=== PATIENT | female | born 1955 | race Caucasian/White ===

== ENCOUNTER 2020-09-11 02:20 | Day surgery (SDC) | payer BC, SELFPAY ==
[2020-08-27 09:46] VITALS: BMI 21.7
[2020-09-11 09:24] VITALS: BP 150/76; PULSE 59; RESP 16; TEMP 36.8; O2SAT 99
--- NOTE | 2020-09-11 09:47 | PM.HPGS ---
History of Present Illness History of Present Illness Consent: Risks, benefits, and alternatives have been discussed and questions answered. Patient agrees to proceed with procedure. Chief complaint: weight loss, change in bowel habits Narrative: Thuy Chowdary is a 64 year old female with recent weight loss. She has had no vomiting nausea or abdominal pain. She has however had a significant change in her bowel habits. She was constipated for well and then after taking laxative she developed diarrhea. Going on a fiber supplement has seems to help with that. Review of Systems Review of Systems: All systems reviewed & are unremarkable except as noted in HPI and below PMFSH Past Medical History Medical History (Updated 09/11/20 @ 09:48 by Dino Sierra MD) Heart murmur Hyperlipidemia Hypertension Type 2 diabetes mellitus without complications Family History Family History Mother Diabetes mellitus Family history of cardiovascular disease Sibling Diabetes mellitus Family history of cardiovascular disease Father Asthma Family history of cardiovascular disease Social History Social History Smoking status: Never smoker Second hand tobacco smoke exposure: No Alcohol intake: never Substance use: never Substance use type: does not use Living arrangements: with family Gender identity (if verbalized by the patient): Female Spiritual care concerns: No Agree to blood products: Yes Meds Home Medications and Allergies Home Medications Medication Instructions Recorded Confirmed Type aspirin 81 mg tablet,delayed 81 mg PO DAILY 07/15/19 09/11/20 History release candesartan 32 1 tablet PO DAILY 07/15/19 09/11/20 History mg-hydrochlorothiazide 12.5 mg tablet simvastatin 20 mg tablet 20 mg PO DAILY 07/15/19 09/11/20 History metformin 1,000 mg tablet See Rx Instructions .ROUTE 07/27/20 09/11/20 Rx .COMPLEX #180 tablet Allergies Allergy/AdvReac Type Severity Reaction Status Date / Time dextrose AdvReac Mild Unknown Verified 09/11/20 09:22 theophylline AdvReac Mild Vomiting Verified 09/11/20 09:22 iodine AdvReac Unknown Diarrhea Verified 09/11/20 09:22 Xanthines AdvReac Unknown Vomiting Verified 09/11/20 09:22 Vital Signs Vital Signs - 24 hr 09/11/20 09:24 Temperature 36.8 C Pulse Rate 59 L Respiratory Rate 16 Blood Pressure 150/76 H Pulse Oximetry 99 Exam Resp: Auscultation: clear to auscultation bilaterally Cardio: Rate: regular rate Rhythm: regular rhythm GI: GI Palp: Yes Soft to palpation and No Tenderness to palpation present (GI) Assessment and Plan Assessment and plan (1) Weight loss: Code(s): R63.4 - Abnormal weight loss Status: Acute Assessment and Plan: EGD with possible biopsy or dilatation or cautery. (2) Colon cancer screening: Code(s): Z12.11 - Encounter for screening for malignant neoplasm of colon Status: Acute Assessment and Plan: Colonoscopy with possible biopsy or polypectomy or cautery or injection of substances.
[2020-09-11 09:50] LABS: Glucose Point of Care 136 mg/dl (65-105)
--- NOTE | 2020-09-11 09:55 | WPDANESEPPF ---
Anes - Initial Pre Proc Eval Procedure: Operation Date: 09/11/20 10:30 Proposed Procedures p Esophagogastroduodenoscopy & Colonoscopy - Dino Sierra MD Date/Time: 09/11/20 09:55 Surgeon: Dino Sierra MD Pre Op Diagnosis: weight loss, change in bowel habits Patient Data Age: 64 Gender: F Height: 1.83 m Weight: 68.9 kg Last Vital Signs Temp 98.2 F 09/11/20 09:24 Pulse 59 L 09/11/20 09:24 Resp 16 09/11/20 09:24 BP 150/76 H 09/11/20 09:24 Pulse Ox 99 09/11/20 09:24 Allergies Allergy/AdvReac Type Severity Reaction Status Date / Time dextrose AdvReac Mild Unknown Verified 09/11/20 09:22 theophylline AdvReac Mild Vomiting Verified 09/11/20 09:22 iodine AdvReac Unknown Diarrhea Verified 09/11/20 09:22 Xanthines AdvReac Unknown Vomiting Verified 09/11/20 09:22 Home Medications Medication Instructions Recorded Confirmed Type aspirin 81 mg tablet,delayed 81 mg PO DAILY 07/15/19 09/11/20 History release candesartan 32 1 tablet PO DAILY 07/15/19 09/11/20 History mg-hydrochlorothiazide 12.5 mg tablet simvastatin 20 mg tablet 20 mg PO DAILY 07/15/19 09/11/20 History metformin 1,000 mg tablet See Rx Instructions .ROUTE 07/27/20 09/11/20 Rx .COMPLEX #180 tablet Laboratory Tests 09/11/20 09:46 POC Capillary Glucose 136 mg/dl H mg/dl (65-105) Patient hx anesthesia problems: none Family hx anesthesia problems: none PMFSH Past Medical History Medical History (Updated 09/11/20 @ 09:48 by Dino Sierra MD) Heart murmur Hyperlipidemia Hypertension Type 2 diabetes mellitus without complications Family History Family History Mother Diabetes mellitus Family history of cardiovascular disease Sibling Diabetes mellitus Family history of cardiovascular disease Father Asthma Family history of cardiovascular disease Social History Social History Smoking status: Never smoker Second hand tobacco smoke exposure: No Alcohol intake: never Substance use: never Substance use type: does not use Living arrangements: with family Gender identity (if verbalized by the patient): Female Spiritual care concerns: No Agree to blood products: Yes Anes - Eval Final PreProcedure Day of Procedure 09/11/20 09:55 Patient weight: normal Heart: regular rate and rhythm Lungs: clear to auscultation Airway: Mallampati scale class II Neurological: alert and oriented Last oral intake: >/= 8 hours ASA classification: II Emergent: no Anesthetic plan: proceed Anesthesia type and monitoring: general GIVS and standard monitoring Informed Consent: The patient's anesthetic plan and its attendant risks and benefits were discussed with the patient/family/POA. Questions were solicited and answers provided to the satisfaction of the patient/family/POA.
[2020-09-11] MEDS: LACTATED RINGERS 1,000 ML 150 ML IV CONT (10:02)
[2020-09-11] MEDS: BENZOCAINE (*SP) 60 ML SPRAY CAN (HURRICAINE) 1 SPRAY MUCOUS MEM (10:10)
[2020-09-11 10:41] VITALS: BP 111/72; PULSE 78; RESP 17; O2SAT 100
[2020-09-11 10:49] VITALS: BP 108/74; PULSE 75; RESP 16; O2SAT 100
[2020-09-11 10:59] VITALS: BP 120/73; PULSE 70; RESP 16; O2SAT 100
== END 2020-09-11 11:23 | disposition home or self-care (01) ==
PROVIDERS: PCP Family Medicine; Visit Provider Internal Medicine Gastroenterology
PROC: 0DJ08ZZ Inspection of Upper Intestinal Tract, Via Natural or Artificial Opening Endoscopic (ICD-10-PCS; CPT 43235; principal; 2020-09-11 10:30)
DX: Z12.11 Encounter for screening for malignant neoplasm of colon (principal); D12.4 Benign neoplasm of descending colon; K51.40 Inflammatory polyps of colon without complications; K64.4 Residual hemorrhoidal skin tags; K57.30 Diverticulosis of large intestine without perforation or abscess without bleeding; R63.4 Abnormal weight loss; K21.9 Gastro-esophageal reflux disease without esophagitis; I10 Essential (primary) hypertension; E78.5 Hyperlipidemia, unspecified; E11.9 Type 2 diabetes mellitus without complications; Z79.84 Long term (current) use of oral hypoglycemic drugs; Z79.82 Long term (current) use of aspirin
CPT/HCPCS: 45385; 43239; 82948; 87081; 88305; J2704; J7120

== ENCOUNTER 2022-11-17 13:15 | Outpatient (RCR) | payer MEDICARE, SELFPAY ==
--- NOTE | 2022-10-18 14:50 | PTOPEVAL1 ---
Assessment and note entered by Leonel Carr Evaluation Information Assessment Status Evaluation Diagnosis left shoulder pain Onset 10/03/22 Subjective Information Pt. reports she developed pain around the 03 of October. She was moving a concrete block in her yard and that is when she noticed her pain. She reports that she also has to lift her husbands wc frequently, which has also contributed to her left shoulder pain. She reports pain is improving since seeing the doctor, and she recieved a shot from the doctor. She reports that pain is mild currently and describes pain in the left shoulder and lateral brachial region. She reports pain is most notable with lifting any light or heavy objects. She reports that pain does not bother her sleep at night. She states that it did prior to her injection. Pain was constant, however no is only notable with activity. She reports that her goal for therapy is to reduce her pain in the left shoulder with lifting. Pt. reports she is right hand dominant. Reported Pain Level Pain Score 0: Self Report Assessment PT Clinical Summary Pt. is a 67 year old female who enters the clinic with left shoulder pain. Pt. objective findings are consistent with impingement syndrome. Continued skilled PT is indicated in order to improve left u.e. strength, left shoulder flexion ROM, reduce pain and improve postural awareness for improved comfort with IADL's. Plan of Care Interventions Electrical Stimulation,Hot Pack/Cold Pack,Manual Therapy,Neuro Re-education,Patient/Caregiver Educati,Therapeutic Activities,Therapeutic Exercise PT Services Indicated Yes Treatment Frequency and 2x/week x 8 visits Duration These treatments will address the objective and functional deficits as defined above. The patient will be advanced safely and appropriately in order for the patient to progress towards his/her prior level of function. Additional exercises will be introduced and as well as a comprehensive home exercise program upon discharge, if needed, ?to ensure carryover of functional gains achieved in the clinic. This treatment plan has been reviewed and agreement upon by the patient.
--- NOTE | 2022-10-18 14:51 | OPREHPOC ---
Outpatient Therapy Plan of Care This is a Multidisciplinary Plan of Care that may contain components documented by all disciplines (PT, OT, and ST.) PT Problem 1 PT Problem #1 Knowledge Deficit PT Goal 1 Goal Pt. will be independent with a HEP addressing strength and postural awareness. Target Visit 2 PT Problem 2 PT Problem #2 Pain PT Goal 1 Goal Pt. will report pain reduction to 1/10 at worst with all overhead lifting activities. Target Visit 8 PT Problem 3 PT Problem #3 Impaired Range of Motion PT Goal 1 Goal Pt. will achieve 170 degrees active left shoulder flexion ROM to improve ability to complete overhead activities. Target Visit 8 PT Problem 4 PT Problem #4 Impaired Strength PT Goal 1 Goal Pt. will present with 4+/5 or great proximal left shoulder strength Target Visit 6 PT Goal 2 Goal Pt. will be able to lift object weighing 10# or greater overhead with left u.e. for 5-10 reps Target Visit 8
--- NOTE | 2022-11-17 14:00 | OPREHPOC ---
Outpatient Therapy Plan of Care This is a Multidisciplinary Plan of Care that may contain components documented by all disciplines (PT, OT, and ST.) PT Problem 1 PT Problem #1 Knowledge Deficit PT Goal 1 Goal Pt. will be independent with a HEP addressing strength and postural awareness. Target Visit 2 Progress Met PT Problem 2 PT Problem #2 Pain PT Goal 1 Goal Pt. will report pain reduction to 1/10 at worst with all overhead lifting activities. Target Visit 8 Progress Met PT Problem 3 PT Problem #3 Impaired Range of Motion PT Goal 1 Goal Pt. will achieve 170 degrees active left shoulder flexion ROM to improve ability to complete overhead activities. Target Visit 8 Progress Met PT Problem 4 PT Problem #4 Impaired Strength PT Goal 1 Goal Pt. will present with 4+/5 or great proximal left shoulder strength Target Visit 6 Progress Met PT Goal 2 Goal Pt. will be able to lift object weighing 10# or greater overhead with left u.e. for 5-10 reps Target Visit 8 Progress Met
--- NOTE | 2022-11-17 14:01 | PTOPDC ---
Assessment and note entered by Wero York, PT Discharge Information Assessment Status Discharge Diagnosis left shoulder pain Onset 10/03/22 Subjective Information Reports that she is doing fairly well today. She was waxing her car this weekend and was fairly sore from that. Overall feels progress is made. Reported Pain Level Pain Score 0: Self Report Assessment PT Clinical Summary Patient met all goals for therapy and is suitable for discharge to [facility] at this time. Plan of Care PT Services Indicated No
== END 2022-11-17 14:13 | disposition home or self-care (01) ==
LOC: ANHHIPT 13:15
PROVIDERS: PCP Physician Assistant Medical; Visit Provider Physician Assistant Medical
DX: M25.512 Pain in left shoulder (principal)
CPT/HCPCS: 97110; 97112; 97140; 97161

== ENCOUNTER 2023-08-15 06:54 | Day surgery (SDC) | payer MEDICARE, SELFPAY ==
[2023-07-28 09:54] VITALS: BMI 21.2
[2023-08-03 14:37] VITALS: BMI 21.0
--- NOTE | 2023-08-14 13:59 | PM.HPGS ---
History of Present Illness History of Present Illness Consent: Risks, benefits, and alternatives have been discussed and questions answered. Patient agrees to proceed with procedure. 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 Review of Systems Review of Systems: All systems reviewed & are unremarkable except as noted in HPI and below PMFSH Past Medical History Medical History 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, Dr Sierra Heart murmur Hyperlipidemia Hypertension Dr Wallace Type 2 diabetes mellitus without complications Surgical History Surgical History Status post hysteroscopic ablation of endometrium Family History Family History Mother Diabetes mellitus Family history of cardiovascular disease Sibling Diabetes mellitus Family history of cardiovascular disease Father Asthma Family history of cardiovascular disease Social History Social History Smoking status: Never smoker Second hand tobacco smoke exposure: No Alcohol intake: never Substance use: never Substance use type: does not use Lack of Transportation: YES Lack of Food: Never True Current Housing: I Have Housing Concerned About Future Housing: No Difficulty Paying Gas/Electric Bills: No Difficulty Paying for Meds: No Currently Unemployed: No Education: High School Diploma/GED Difficulty w/ Childcare or Family Care: No Living arrangements: with family Occupation/Education: retired Gender identity (if verbalized by the patient): Female Sexual Orientation (if Verbalized by the Patient): Straight or Heterosexual Spiritual care concerns: No Agree to blood products: Yes Meds Home Medications and Allergies Home Medications Medication Instructions Recorded Confirmed Type aspirin 81 mg tablet,delayed 81 mg PO DAILY 07/15/19 08/15/23 History release simvastatin 20 mg tablet 20 mg PO DAILY 07/15/19 08/15/23 History omeprazole 20 mg capsule,delayed 20 mg PO DAILY #30 caps 11/26/20 08/15/23 Rx release losartan 100 1 tablet PO DAILY #90 tabs 05/17/22 08/15/23 Rx mg-hydrochlorothiazide 12.5 mg tablet Lactobacillus rhamnosus-Bifidobac. 1 cap PO DAILY 11/16/22 08/15/23 History animalis 3 billion cell capsule ([employer]) metformin 1,000 mg tablet 1,000 mg PO BID 08/03/23 08/15/23 History Allergies Allergy/AdvReac Type Severity Reaction Status Date / Time citalopram AdvReac Severe Diarrhea Verified 08/15/23 07:47 lorazepam AdvReac Intermediate Diarrhea Verified 08/15/23 07:47 dextrose AdvReac Mild Unknown Verified 08/15/23 07:47 theophylline AdvReac Mild Vomiting Verified 08/15/23 07:47 iodine AdvReac Unknown Diarrhea Verified 08/15/23 07:47 Xanthines AdvReac Unknown Vomiting Verified 08/15/23 07:47 Exam Const: General: alert Orientation/consciousness: patient oriented x3 Resp: Auscultation: clear to auscultation bilaterally Cardio: Rhythm: regular rhythm GI: GI Palp: Yes Soft to palpation and No Tenderness to palpation present (GI) Neuro: General: patient oriented x3 Assessment and Plan Assessment and plan (1) Marquis's esophagus determined by endoscopy: Code(s): K22.70 - Marquis's esophagus without dysplasia Status: Acute Assessment and Plan: EGD with possible biopsy or dilatation or cautery.
[2023-08-15 07:48] VITALS: BP 177/77; PULSE 64; RESP 16; TEMP 37.3; O2SAT 98
[2023-08-15] MEDS: LACTATED RINGERS 1,000 ML 150 ML IV CONT (07:50)
[2023-08-15 08:01] LABS: Glucose Point of Care 118 mg/dl (65-105)
--- NOTE | 2023-08-15 08:30 | WPDANESEPPF ---
Anes - Initial Pre Proc Eval Procedure: Operation Date: 08/15/23 09:00 Proposed Procedures p Esophagogastroduodenoscopy - Dino Sierra MD Date/Time: 08/15/23 08:30 Surgeon: Dino Sierra MD Pre Op Diagnosis: Marquis's Patient Data Age: 67 Gender: F Height: 1.83 m Weight: 70.1 kg Last Vital Signs Temp 37.3 C 08/15/23 07:48 Pulse 64 08/15/23 07:48 Resp 16 08/15/23 07:48 BP 177/77 H 08/15/23 07:48 Pulse Ox 98 08/15/23 07:48 O2 Del Method Room Air 08/15/23 07:48 Allergies Allergy/AdvReac Type Severity Reaction Status Date / Time citalopram AdvReac Severe Diarrhea Verified 08/15/23 07:47 lorazepam AdvReac Intermediate Diarrhea Verified 08/15/23 07:47 dextrose AdvReac Mild Unknown Verified 08/15/23 07:47 theophylline AdvReac Mild Vomiting Verified 08/15/23 07:47 iodine AdvReac Unknown Diarrhea Verified 08/15/23 07:47 Xanthines AdvReac Unknown Vomiting Verified 08/15/23 07:47 Home Medications Medication Instructions Recorded Confirmed Type aspirin 81 mg tablet,delayed 81 mg PO DAILY 07/15/19 08/15/23 History release simvastatin 20 mg tablet 20 mg PO DAILY 07/15/19 08/15/23 History omeprazole 20 mg capsule,delayed 20 mg PO DAILY #30 caps 11/26/20 08/15/23 Rx release losartan 100 1 tablet PO DAILY #90 tabs 05/17/22 08/15/23 Rx mg-hydrochlorothiazide 12.5 mg tablet Lactobacillus rhamnosus-Bifidobac. 1 cap PO DAILY 11/16/22 08/15/23 History animalis 3 billion cell capsule ([employer]) metformin 1,000 mg tablet 1,000 mg PO BID 08/03/23 08/15/23 History Laboratory Tests 08/15/23 07:54 POC Capillary Glucose 118 H mg/dl (65-105) Patient hx anesthesia problems: none Family hx anesthesia problems: none Results Review: All pre-operative results and documents have been reviewed as part of the pre-operative evaluation. [facility] Past Medical History Medical History 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, Dr Sierra Heart murmur Hyperlipidemia Hypertension Dr Wallace Type 2 diabetes mellitus without complications Surgical History Surgical History Status post hysteroscopic ablation of endometrium Family History Family History Mother Diabetes mellitus Family history of cardiovascular disease Sibling Diabetes mellitus Family history of cardiovascular disease Father Asthma Family history of cardiovascular disease Social History Social History Smoking status: Never smoker Second hand tobacco smoke exposure: No Alcohol intake: never Substance use: never Substance use type: does not use Lack of Transportation: YES Lack of Food: Never True Current Housing: I Have Housing Concerned About Future Housing: No Difficulty Paying Gas/Electric Bills: No Difficulty Paying for Meds: No Currently Unemployed: No Education: High School Diploma/GED Difficulty w/ Childcare or Family Care: No Living arrangements: with family Occupation/Education: retired Gender identity (if verbalized by the patient): Female Sexual Orientation (if Verbalized by the Patient): Straight or Heterosexual Spiritual care concerns: No Agree to blood products: Yes Anes - Eval Final PreProcedure Day of Procedure 08/15/23 08:30 Patient weight: normal Heart: regular rate and rhythm Lungs: clear to auscultation Airway: Mallampati scale class II Neurological: alert and oriented Last oral intake: >/= 8 hours ASA classification: III Emergent: no Anesthetic plan: proceed Anesthesia type and monitoring: general GIVS and standard monitoring Results Review: All pre-operative results and documents have been reviewed as part of the pre-operative evaluation. Informed Consent: The patient's an
[2023-08-15 09:01] VITALS: BP 107/87; PULSE 71; RESP 14; O2SAT 98
[2023-08-15 09:11] VITALS: BP 119/74; PULSE 58; RESP 16; O2SAT 97
[2023-08-15 09:21] VITALS: BP 132/91; PULSE 57; RESP 16; O2SAT 97
--- NOTE | 2023-08-15 09:35 | WPDANESPN ---
Anes - Prog Note Post-Op Date/Time: 08/15/23 09:35 Cardiovascular status: normal Respiratory status: normal Airway patency: baseline Mental status: baseline Vital Signs: Last Vital Signs Temp 37.3 C 08/15/23 07:48 Pulse 64 08/15/23 07:48 Resp 16 08/15/23 07:48 BP 177/77 H 08/15/23 07:48 Pulse Ox 98 08/15/23 07:48 O2 Del Method Room Air 08/15/23 07:48 Pain Score (VAS): 0/10 I/O: Intake & Output 08/14/23 08/15/23 08/15/23 23:59 07:59 15:59 Intake Total 200 Balance 200 08/15/23 07:54 POC Capillary Glucose 118 H Patient Feedback: Patient satisfied with anesthetic care.
== END 2023-08-15 09:40 | disposition home or self-care (01) ==
PROVIDERS: PCP Family Medicine; Visit Provider Internal Medicine Gastroenterology
PROC: 0DJ08ZZ Inspection of Upper Intestinal Tract, Via Natural or Artificial Opening Endoscopic (ICD-10-PCS; CPT 43235; principal; 2023-08-15 09:00)
DX: K22.70 Barrett's esophagus without dysplasia (principal)
CPT/HCPCS: 43239

== ENCOUNTER 2023-08-15 07:32 | Outpatient (NON) | payer MEDICARE, SELFPAY | END 2023-08-15 07:33 | disposition home or self-care (01) | PROVIDERS: PCP Family Medicine; Visit Provider Internal Medicine Gastroenterology | DX: K21.00 Gastro-esophageal reflux disease with esophagitis, without bleeding (principal); K22.70 Barrett's esophagus without dysplasia | CPT/HCPCS: 88305 ==

== ENCOUNTER 2023-10-09 10:42 | Emergency (ER) | payer MEDICARE, SELFPAY ==
[2023-10-09 11:02] VITALS: BP 154/79; PULSE 60; RESP 18; TEMP 36.5; O2SAT 98
--- NOTE | 2023-10-09 11:09 | ED.FEMALEGU ---
HPI - Female Genitourinary General Chief complaint: Urogenital-Female Stated complaint: blood in urine Time Seen by Provider: 10/09/23 11:09 Source: patient Mode of arrival: ambulatory Limitations: no limitations History of Present Illness HPI Narrative: 68-year-old female presents with complaint of blood in urine, dysuria since yesterday. No abdominal or back pain. Afebrile. History of kidney stones and No similar symptoms. Not concerned for kidney stones at this time. Denies nausea vomiting. All systems reviewed and negative except as noted above. Related Data Home Medications Medication Instructions Recorded Confirmed aspirin 81 mg tablet,delayed 81 mg PO DAILY 07/15/19 10/09/23 release simvastatin 20 mg tablet 20 mg PO DAILY 07/15/19 10/09/23 Lactobacillus rhamnosus-Bifidobac. 1 cap PO DAILY 11/16/22 10/09/23 animalis 3 billion cell capsule ([employer] metformin 1,000 mg tablet 1,000 mg PO BID 08/03/23 10/09/23 Allergies Allergy/AdvReac Type Severity Reaction Status Date / Time citalopram AdvReac Severe Diarrhea Verified 10/09/23 11:01 lorazepam AdvReac Intermediate Diarrhea Verified 10/09/23 11:01 dextrose AdvReac Mild Unknown Verified 10/09/23 11:01 theophylline AdvReac Mild Vomiting Verified 10/09/23 11:01 iodine AdvReac Unknown Diarrhea Verified 10/09/23 11:01 Xanthines AdvReac Unknown Vomiting Verified 10/09/23 11:01 Review of Systems Review of Systems: CONSTITUTIONAL: Denies fever, chills, or sweats. EYES: Denies visual changes, redness, or discharge. ENT: Denies rhinorrhea, congestion, sore throat, or otalgia. CARDIOVASCULAR: Denies chest pain, palpitations, or edema. RESPIRATORY: Denies cough or dyspnea. GASTROINTESTINAL: Denies abdominal pain, nausea, vomiting, or diarrhea. GENITOURINARY: Reports dysuria and hematuria. SKIN: Denies rash or itching. MUSCULOSKELETAL: Denies back pain, joint pain, or myalgia. NEUROLOGIC: Denies headache, numbness, or weakness. PSYCHIATRIC: Denies anxiety or depression. All other systems reviewed are negative, except as documented in HPI. [facility] Past Medical History Medical History (Updated 10/09/23 @ 11:19 by Malia Doll NP) 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, Dr Sierra Heart murmur Hyperlipidemia Hypertension Dr Wallace Type 2 diabetes mellitus without complications Surgical History Surgical History (Updated 08/15/23 @ 10:47 by Arielle Lockhart [facility]) H/O esophagogastroduodenoscopy Status post hysteroscopic ablation of endometrium Family History Family History Mother Diabetes mellitus Family history of cardiovascular disease Sibling Diabetes mellitus Family history of cardiovascular disease Father Asthma Family history of cardiovascular disease Social History Social History Smoking status: Never smoker Second hand tobacco smoke exposure: No Alcohol intake: never Substance use: never Substance use type: does not use Lack of Transportation: YES Lack of Food: Never True Current Housing: I Have Housing Concerned About Future Housing: No Difficulty Paying Gas/Electric Bills: No Difficulty Paying for Meds: No Currently Unemployed: No Education: High School Diploma/GED Difficulty w/ Childcare or Family Care: No Living arrangements: with family Occupation/Education: retired Gender identity (if verbalized by the patient): Female Sexual Orientation (if Verbalized by the Patient): Straight or Heterosexual Spiritual care concerns: No Agree to blood products: Yes Comments At time of signature, agree with nursing past medical, surgical, social and family history. There is no relevant family history pertinent to the presenting complaint. Exam Narrative: GENERAL: This is a well-nourished, well-developed patient, in no apparent distress. H
[2023-10-09 11:11] LABS: EDUAAPPEAR Cloudy; EDUABILI Negative; EDUABLOOD 3+; EDUACOLOR1 Yellow; EDUAGLUCOSE Negative; EDUAKETONE Negative; EDUALEUKO 1+; EDUANITRATE Negative; EDUAPROTEIN Negative; EDUAUROBILI 0.2
== END 2023-10-09 11:22 | disposition home or self-care (01) ==
PROVIDERS: Emergency Provider Nurse Practitioner Family; PCP Internal Medicine
DX: N39.0 Urinary tract infection, site not specified (principal); K22.70 Barrett's esophagus without dysplasia; R01.1 Cardiac murmur, unspecified; E78.5 Hyperlipidemia, unspecified; I10 Essential (primary) hypertension; E11.9 Type 2 diabetes mellitus without complications; Z79.82 Long term (current) use of aspirin
CPT/HCPCS: 81003; 87086; 99213; G0463

== ENCOUNTER 2024-05-03 10:52 | Emergency (ER) | payer MEDICARE, SELFPAY ==
--- NOTE | 2024-05-03 10:56 | ED_ITS ---
HPI - URI/Sore Throat General Chief Complaint: Upper Respiratory Infection Stated Complaint: cough Time Seen by Provider: 05/03/24 11:00 Source: patient, RN notes reviewed and old records reviewed Mode of arrival: ambulatory Limitations: no limitations History of Present Illness HPI Narrative: 68-year-old female presents to the [facility] with complaints of a scratchy throat, cough, runny nose and drainage for the last 10-12 days. States that her blood sugars normally run 110-120. Patient states that her sugars have been in the 130s. Patient denies any chest pain, shortness of breath. Denies fevers. No nausea vomiting diarrhea. Onset (ago): day(s) (11-24) Related Data Home Medications ?Medication ?Instructions ?Recorded ?Confirmed ?Last Taken ?Type aspirin 81 mg tablet,delayed 81 mg PO DAILY 07/15/19 12/22/23 09/09/20 History release simvastatin 20 mg tablet 20 mg PO DAILY 07/15/19 12/22/23 09/09/20 History Lactobacillus rhamnosus-Bifidobac. 1 cap PO DAILY 11/16/22 12/22/23 Unknown History animalis 3 billion cell capsule (AorTx) Allergies Allergy/AdvReac Type Severity Reaction Status Date / Time citalopram AdvReac Intermediate Diarrhea Verified 05/03/24 10:55 dextrose AdvReac Intermediate Gastrointestinal Verified 05/03/24 10:55 Upset iodine AdvReac Intermediate Diarrhea Verified 05/03/24 10:55 lorazepam AdvReac Intermediate Diarrhea Verified 05/03/24 10:55 theophylline AdvReac Intermediate Vomiting Verified 05/03/24 10:55 Xanthines AdvReac Intermediate Vomiting Verified 05/03/24 10:55 Review of Systems Review of Systems: All systems reviewed & are unremarkable except as noted in HPI and below Constitutional: Constitutional: Reports no additional constitutional complaints ENT: Reports as per HPI Cardiovascular: Cardiovascular: Reports no additional cardiovascular complaints, Denies chest pain and Denies dyspnea Respiratory: Respiratory: Reports as per HPI, Denies chest congestion, Reports cough and Denies dyspnea Musculoskeletal: Musculoskeletal: Reports no additional musculoskeletal complaints Integumentary/Breasts: Skin/Breast: Reports system reviewed and no additional complaints, except as docu PMFSH Past Medical History Medical History 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, Dr Sierra Heart murmur Hyperlipidemia Hypertension Dr Wallace Type 2 diabetes mellitus without complications Surgical History Surgical History H/O esophagogastroduodenoscopy Status post hysteroscopic ablation of endometrium Family History Family History Mother Diabetes mellitus Family history of cardiovascular disease Sibling Diabetes mellitus Family history of cardiovascular disease Father Asthma Family history of cardiovascular disease Social History Social History Smoking status: Never smoker Second hand tobacco smoke exposure: No Alcohol intake: never Substance use: never Substance use type: does not use Lack of Transportation: YES Lack of Food: Never True Current Housing: I Have Housing Concerned About Future Housing: No Difficulty Paying Gas/Electric Bills: No Difficulty Paying for Meds: No Currently Unemployed: No Education: High School Diploma/GED Difficulty w/ Childcare or Family Care: No Living arrangements: with family Occupation/Education: retired Gender identity (if verbalized by the patient): Female Sexual Orientation (if Verbalized by the Patient): Straight or Heterosexual Spiritual care concerns: No Agree to blood products: Yes Comments At the time of my signature, I reviewed and agree with the nursing past medical, surgical, social, and family history. There is no relevant family history pertinent to the patient complaint. Exam Const: General: cooperative, healthy appearing, comfortable, no acute distress, well developed, alert and well nourished Nutritional Appearance: well nourished Orientation/consciousness: patient oriented x3 Limitations: no limitations HENMT: Head: normal to inspection Ears: hearing grossly normal bilaterally, external ears normal, TM's normal bilaterally, EAC's normal, mastoids normal and no periauricular adenopathy Face/Nose/Sinus: Normal external nose present, Nasal discharge present clear bilateral and normal facial exam Mouth: Yes Normal oral and palatal mucosa present, Yes lip normal, Yes tongue normal and Yes moist mucous membranes Throat: uvula midline, postnasal drainage and no uvular edema Eyes: General: appearance normal, both eyes and all related structures Alignment and Position: alignment normal Neck: Neck: normal visual inspection, full ROM, no lymphadenopathy and no meningeal signs Chest: Chest palpation & inspection: normal inspection of the chest Resp: Effort & Inspection: normal respiratory effort and able to speak in complete sentences Auscultation: clear to auscultation bilaterally, no crackles, no rales, no rhonchi and no wheezes Cardio: Rate: regular rate Skin: General skin exam: normal color and no rashes or lesions noted Neuro: General: patient oriented x3, gait normal, moves all extremities and no meningeal signs Cognition (Neuro): normal cognition Speech: normal speech Gait exam (Neuro): Normal gait present Extrem: General: normal to inspection, full ROM, capillary refill normal and normal gait Psych: Appearance: grossly normal and well kempt Mental Status: mental status grossly normal Speech and movement: Normal speech and movement present and Clear speech present Affect: normal affect Attitude: cooperative Course Course Level of Care: Express Care Visit Vital Signs Vital signs: Vital Signs Temperature 96.9 F L 05/03/24 10:59 Pulse Rate 81 05/03/24 10:59 Respiratory Rate 17 05/03/24 10:59 Blood Pressure 129/80 05/03/24 10:59 Pulse Oximetry 98 05/03/24 10:59 Oxygen Delivery Room Air 05/03/24 10:59 Temperature 96.9 F L 05/03/24 10:59 Pulse Rate 81 05/03/24 10:59 Respiratory Rate 17 05/03/24 10:59 Blood Pressure 129/80 05/03/24 10:59 Pulse Oximetry 98 05/03/24 10:59 Oxygen Delivery Room Air 05/03/24 10:59 Reviewed MDM - URI/Sore Throat MDM Narrative Medical decision making narrative: Patient sitting comfortably in exam room. Nontoxic, stable. Patient in no acute distress. Patient presents for 10 to 12 day history cough. Postnasal drainage is noted. No acute findings noted on exam except for postnasal drainage. Due to patient's history days of symptoms, will cover with antibiotic. Discussed with patient that this could also be allergies, discussed [id number] treatments as well, patient verbalized understanding. Patient appropriate for outpatient treatment with close follow-up Discharge instructions reviewed with patient, as well as provided in writing per nursing staff. The instructions also include specific and strict return/GO TO THE ER as well as f/u information. All questions have been answered, and the patient deny any further questions with discharge and discharge plan. Some parts of this dictation were generated by voice recognition software and may contain typographical and/or grammatical inaccuracies. Differential Diagnosis Differential diagnosis: Likely upper respiratory infection, otitis media, sinusitis, viral infection, bronchitis, influenza and pharyngitis Critical Care Time Critical Care Time Critical Care Time: No Discharge Plan Discharge Clinical Impression: PND (post-nasal drip) Cough Qualifiers: Cough type: acute Qualified Code(s): R05.1 - Acute cough Patient Disposition: Home, Self-Care Condition: Stable Instructions: Antibiotic Form, Acute Cough (ED), Postnasal Drip (DC) Additional Instructions: It is very important to treat your symptoms. Drink plenty of water, Gatorade, Pedialyte, ice pops or Jell-O. -Alternate Tylenol and Motrin per package directions for fever or pain. You can alternate every 4 hours -Antihistamine medication such as Zyrtec/Claritin/Angie during the day can help improve symptoms. -doing daily nasal irrigations can help relieve pressure your sinuses. Things like a Neti pot -Use Flonase twice a day for 5 days then daily to help reduce the inflammation and dry up your sinuses. -You can also use Coricidin HBP or Mucinex. Please check with the pharmacist to make sure medications are safe with blood pressure medication. Be sure to drink plenty of water with this medication at least 8 ounces with every dose and it is important to drink 8 to 10 glasses of water per day. Water is a natural decongestant -Eat and drink things that are easy to swallow, like tea or soup, or popsicles. -Oral rinses such as: Salt water gargles and/or may use topical anesthetic (eg. Chloraseptic spray) or lozenges to relieve dryness or throat pain). -Frequent hand washing or hand deburring and tooling machine operator is one of the best ways to prevent spr ead of infection. -Using a vaporizer or humidifier at night will also help thin secretions and help with coughing up phlegm. -Follow up with primary care provider in 7-10 days if condition is not improving - For new or worsening symptoms go directly to the nearest ER Patient Language: Nauruan Prescriptions: New doxycycline monohydrate 100 mg tablet 100 mg PO BID Qty: 14 0RF No Action aspirin 81 mg tablet,delayed release (DR/EC) 81 mg PO DAILY simvastatin 20 mg tablet 20 mg PO DAILY losartan-hydrochlorothiazide 100-12.5 mg tablet 1 tablet PO DAILY Qty: 90 0RF AorTx 3 billion cell capsule 1 cap PO DAILY omeprazole 20 mg capsule,delayed release(DR/EC) 20 mg PO DAILY Qty: 30 0RF metformin 1,000 mg tablet 1,000 mg PO BID Qty: 180 1RF Rx Instructions: Take 1 tablet by mouth twice daily Follow-up/Referrals: Ijeoma Walters APRN [Primary Care Provider] - 2 Weeks ([facility] follow up ) Time of Disposition: 11:09
[2024-05-03 10:59] VITALS: BP 129/80; PULSE 81; RESP 17; TEMP 36.1; O2SAT 98
--- OUTSIDE RECORDS SUMMARY | 2024-05-03 12:04 | XMS_ITS | Encounter Summary ---
Author Organization [facility] Address [facility] [place] [address] Care Team Providers Care Pipe Changer Name Role Phone True Wallace MD Unavailable [phone] Rachel Lagos DO Primary Care Provider [phone] Manjeet Garner MD Primary Care Provider [phone] Ijeoma Walters [facility] Primary Care Provider + Encounter Details Date Type Department Care Team (Late st Contact Info) Description 11/06/2019 Abstract [facility] at [address] [address] Sang Salamanca [place] Social History Tobacco Use Types Packs/Day Years Used Date Smoking Tobacco: Never Smokeless Tobacco: Never Alcohol Use Standard Drinks/Week Comments No 0 (1 standard drink = 0.6 oz pur e alcohol) Comments Unknown Sex and Gender Information Value Date Recorded Sex Assigned at Not on file Legal Sex Female 10:23 PM CDT Gender Identity Not on file Sexual Orientation Not on file Occupation Industry Job Start Date Job End Date unemployed Not on file Not on file Not on file COVID-19 Exposure Response Date Recorded In the last month, have you been in contact with someone who was confirmed or suspected to have Coronavirus / COVID-19? Unable to assess 11/04/2019 11:39 AM CDT documented as of this encounter Plan of Treatment Upcoming Encounters Date Type Department Care Team (Late st Contact Info) Description 12/09/2024 11:30 AM CDT Office Visit [facility] [address] [place] [address] True Wallace MD [facility] [address] [place] [address] documented as of this encounter Procedures Procedure Name Priority Date/Time Associated Diagnosis Comments COMPREHENSIVE METABOLIC PANEL Routine 06/01/2023 LIPID PANEL Routine 06/01/2023 CBC, MANUAL DIFF Routine 06/01/2023 THYROID STIM HORMONE TSH Routine 06/01/2023 LIPID PANEL Routine 10/28/2019 HEMOGLOBIN, GLYCOSYLATED Routine 10/28/2019 documented in this encounter Results * COMPREHENSIVE METABOLIC PANEL (06/01/2023) SODIUM S/P/B 137 GLUCOSE 104 mg/dL AST 17 BUN 16 CREATININE S/P/B 0.65 0.5 - 1.0 CALCIUM S/P/B 9.7 POTASSIUM S/P/B 4.1 CHLORIDE S/P/B 96 ALT 11 GFR ESTIMATE 98 us Default History Genericprovider LABORATORY Final Result * LIPID PANEL (06/01/2023) CHOLESTEROL 138 TRIGLYCERIDES 88 HDL 59 LDL (CALCULATED) 62 NON HDL CHOLESTEROL 79 us Default History Genericprovider LABORATORY Final Result * CBC, MANUAL DIFF (06/01/2023) WBC 6.4 HGB 13.7 HCT 41.3 PLT 297 us Default History Genericprovider LABORATORY Final Result * THYROID STIM HORMONE TSH (06/01/2023) TSH 0.56 us Default History Genericprovider LABORATORY Final Result * HEMOGLOBIN, GLYCOSYLATED (10/28/2019) HGB A1C 6.5 % 10/28/2019 us Doc [facility] LABORATORY Final Result * LIPID PANEL (10/28/2019) CHOLESTEROL 151 HDL 60 TRIGLYCERIDES 82 NON HDL CHOLESTEROL 91 LDL (CALCULATED) 75 10/28/2019 us Doc [facility]ORAT[facility] Final Result documented in this encounter Visit Diagnoses Not on filedocumented in this encounter Care Teams Pipe Changer Relationship Specialty Start Date End Date Rachel Lagos DO [facility] [address] [address] PCP - General FAMILY PRACTICE 02/13/17 11/12/21 Manjeet Garner MD [address] [place] [id number] PCP - General FAMILY PRACTICE 11/13/21 12/04/23 Ijeoma Walters, [facility] [address] [place] [id number] PCP - General Nurse Practitioner Family 12/05/23 True Wallace MD [facility] [address] [place] [address] [employer] Maintenance Supervisor CARDIOVASCULAR DISEASE 07/15/15 documented as of this encounter
--- OUTSIDE RECORDS SUMMARY | 2024-05-03 12:04 | XMS_ITS | Clinical Summary ---
Author Organization [facility] Address [address] [place] [address] Care Team Providers Care Center Line Cutter Operator Name Role Phone True Wallace MD Unavailable [phone] Junior Davison [facility] Primary Care Provider + Allergies Active Allergy Reactions Criticality Noted Date Comments Iodine Vomiting 01/13/2016 Removed per patient amendment request. Patient doesn't have an allergy to Iodine but reported vomiting after drinking oral contrast. Denies any occurrence of rash, dyspnea or angio edema. See scanned amendment request and chart correction case [id number]. Theophylline Vomiting 11/28/2020 Medications * This document contains information received from the source organization and may not represent a complete record from that organization. aspirin EC (ASPIRIN EC) 81 MG tablet Take 1 tablet (81 mg total) by mouth every other day. 12/17/2012 Active metFORMIN 1000 MG tablet Take 1 tablet (1,000 mg total) by mouth 2 (two) times daily. 10/26/2019 Active NON FORMULARY daily. Total Beets Active Docusate Sodium (STOOL SOFTENER OR) Take by mouth daily. Active Probiotic Product (BookingBug OR) Take by mouth daily. Active Calcium Carb-Cholecalci ferol (CALCIUM 500+D3 OR) Take by mouth daily. Active B Complex (VITAMIN B COMPLEX) Cap capsule Take 1 capsule by mouth daily. Active Cholecalciferol (VITAMIN D3) 50 MCG (2000 UT) Cap Take by mouth daily. Active losartan-hydroC HLOROthiazide (HYZAAR) 100-12.5 MG tablet Take 1 tablet by mouth daily. 90 tablet 3 12/04/2023 Active simvastatin (ZOCOR) 20 MG tablet Take 1 tablet (20 mg total) by mouth nightly at bedtime. 90 tablet 3 12/04/2023 Active Active Problems Problem Noted Date Diagnosed Date Nonrheumatic mitral valve stenosis 12/04/2023 Non-rheumatic mitral regurgitation 06/11/2018 Bradycardia 06/11/2018 CAD (coronary artery disease) Hypertension, essential Dyslipidemia Encounters Date Type Department Care Team Description 02/27/2024 12:21 PM DIRECT CARE WORKER - 02/27/2024 11:59 PM DIRECT CARE WORKER Hospital Encounter [facility] Mammography [address] [place] [address] Junior Davison, [facility]- Discharge Disposition: Home or Self Care (Routine Discharge) 02/27/2024 Travel from Last 3 Months Immunizations Name Administration Dates Next Due Flucelvax 6 Months+ (Prefilled Syringe) 11/21/19 17 Influenza Adult (Generic) 12/14/2017 Pneumococcal (Pneumovax 23) 11/21/2018 Tdap (Boostrix) 11/03/2015 Family History Medical History Relation Comments cad Other Breast Cancer Neg Hx Relation Status Comments Other Social History Tobacco Use Types Packs/Day Years [...] file Not on file Not on file Last Filed Vital Signs Vital Sign Reading Time Taken Comments Blood Pressure 138/70 12/04/2023 9:16 AM CDT Pulse 73 12/04/2023 9:16 AM CDT Temperature 37 C (98.6 F) 11/28/2020 3:06 PM CDT Respiratory Rate 18 11/28/2020 3:06 PM CDT Oxygen Saturation 98% 12/04/2023 9:16 AM CDT Inhaled Oxygen Concentration - - Weight 72.6 kg (160 lb) 12/04/2023 9:16 AM CDT Height 177.8 cm (5' 10 ) 12/04/2023 9:16 AM CDT Body Mass Index 22.96 12/04/2023 9:16 AM CDT Plan of Treatment Upcoming Encounters Date Type Department Care Team (Late st Contact Info) Description 12/09/2024 11:30 AM CDT [facility] [address] [place] [address] True Wallace MD [facility]. [facility] [address] [place] [address] Health Maintenance Due Date Last Done Comments Colorectal Cancer Screening Colonoscopy (10 Years) 1957 Hepatitis C 10/05/1975 Zoster Vaccines (1 of 2) 10/05/2007 RSV Immunization or 60+ Years (1 - Risk 60-74 years 1-dose series) 2017 Pneumococcal Vaccine: 65+ Years (2 of 2 - PCV) 11/22/2019 11/21/2018 Annual Medicare Wellness Visit 2022 COVID-19 Vaccine (1 - season) 2023 Influenza Adult (#1) 2023 12/14/2017, 11/21/19 17 DTaP, Tdap and Td Vaccines (2 - Td or Tdap) 11/02/2025 11/03/2015 Mammogram Screening 02/26/2026 02/27/2024, 06/13/2022, 05/20/2021, Additional history exists Dexa Scan (General) Completed 02/27/2024, Meningococcal B Vaccine Aged Out No l onger eligible based on patient's age to complete this topic Meningococcal Vaccine Aged Out No manjeet jessica eligible based on patient's age to complete this topic RSV Immunizations Under 20 Months Aged Out No longer eligible based on patient's age to complete this topic Procedures Procedure Name Priority Date/Time Associated Diagnosis Comments BONE DENSITY/DEXA Routine 02/27/2024 1:0 6 PM DIRECT CARE WORKER Asymptomatic menopausal state Other specified disorders of bone density and structure, unspecified site MG SCREENING W MARIO KRISTAL DIGI Routine 02/27/2024 12:55 PM DIRECT CARE WORKER Visit for screening mammogram from Last 3 Months Results * BONE DENSITY/DEXA (02/27/2024 1:06 PM DIRECT CARE WORKER) Anatomical Region Laterality Modality Bone Bone Density 02/27/2024 2:06 PM DIRECT CARE WORKER Impressions 02/27/2024 2:08 PM DIRECT CARE WORKER IMPRESSION: WHO Classification: Osteopenia. RECOMMENDATIONS: All patients should ensure an adequate intake of dietary calcium and vitamin D. The NOF recommend adults under the age of 50 need 1000 mg of calcium and 400-800 IU of vitamin D daily. Effective therapy for the prevention and treatment of osteoporosis include bisphosphonates. FOLLOW-UP: People with diagnosed cases of osteoporosis or at high risk for fracture should have regular bone mineral density test. For patients eligible for Medicare, routine testing is allowed once every 2 years. Testing frequency can be increased to one year for patients who have rapidly progressing disease, those who are receiving or discontinuing medical therapy to restore bone mass, or have additional risk factors. Ordered By: JUNIOR DAVISON Interpreted By: Kane Mcleod, 02/27/2024 2:06 PM Narrative 02/27/2024 2:08 PM DIRECT CARE WORKER [facility] [address] [place] [address] EXAMINATION: BONE DENSITY/DEXA INDICATIONS: Asymptomatic menopausal state, Other specified disorders of bone density and structure, unspecified site COMPARISON: 12/07/2020 TECHNIQUE: DEXA bone mineral density evaluation was performed in the AP projection over the lumbar spine and both hips utilizing standard imaging techniques. FINDINGS: The BMD measured at the AP spine L1-L4 is 1.101 g/cm? with a T-score of 0.5 (previously 1.015 g/cm? with a T-score of -0.3). These measurements are artifactually elevated secondary to prominent endplate sclerosis and multilevel spondylosis. The BMD measured at the left femoral neck is 0.670 g/cm? with a T-score of -1.6 (previously 0.701 g/cm? with a T-score of -1.3). The BMD measured at the left hip is 0.771 g/cm? with a T-score of -1.4 (previously 0.797 g/cm? with a T-score of -1.2). The BMD measured at the right femoral neck is 0.660 g/cm? with a T-score of - 1.7. The BMD measured at the right hip is 0.757 g/cm? with a T-score of -1.5. FRAX 10-year fracture risk: Major Osteoporotic Fracture: 9.1% Hip Fracture: 1.2% Procedure Note Kane Mcleod MD - 02/27/2024 [facility] [address] [place] [address] EXAMINATION: BONE DENSITY/DEXA INDICATIONS: Asymptomatic menopausal state, Other specified disorders ofbone density and structure, unspecified site COMPARISON: 12/07/2020 TECHNIQUE: DEXA bone mineral density evaluation [facility] the lumbar spine and both hips utilizing standard imagingtechniques. FINDINGS: The BMD measured at the AP spine L1-L4 is 1.101 g/cm? with a T-score of0.5 (previously 1.015 g/cm? with a T-score of -0.3). These measurements are artifactually elevated secondary to prominentendplate sclerosis and multilevel spondylosis. The BMD measured at the left femoral neck is 0.670 g/cm? with a T-score of-1.6 (previously 0.701 g/cm? with a T-score of -1.3). The BMD measured at the left hip is 0.771 g/cm? with a T-score of - 1.4(previously 0.797 g/cm? with a T-score of -1.2). The BMD measured at the right femoral neck is 0.660 g/cm? with a T-scoreof -1.7. The BMD measured at the right hip is 0.757 g/cm? with a T-score of -1.5. FRAX 10-year fracture risk: Major Osteoporotic Fracture: 9.1% Hip Fracture: 1.2% IMPRESSION: WHO Classification: Osteopenia. RECOMMENDATIONS: All patients should ensure an adequate intake of dietary calcium andvitamin D. The NOF recommend adults under the age of 50 need 1000 mg ofcalcium and 400-800 IU of vitamin D daily. Effective therapy for theprevention and treatment of osteoporosis include bisphosphonates. FOLLOW-UP: People with diagnosed cases of osteoporosis or at high risk for fractureshould have regular bone mineral density test. For patients eligible forMedicare, routine testing is allowed once every 2 years. Testing frequencycan be increased to one year for patients who have rapidly progressingdisease, those who are receiving or discontinuing medical therapy torestore bone mass, or have additional risk factors. Ordered By: JUNIOR DAVISON Interpreted By: Kane Mcleod, 02/27/2024 2:06 PM Junior Davison [facility] DEXA Final Re sult * MG SCREENING W MARIO KRISTAL DIGI (02/27/2024 12:55 PM DIRECT CARE WORKER) Anatomical Region Laterality Modality Breast Bilateral Mammography 02/28/2024 9:55 AM DIRECT CARE WORKER Impressions 02/28/2024 9:56 AM DIRECT CARE WORKER =====IMPRESSION:===== No mammographic findings suggestive of malignancy ASSESSMENT: ACR BI-RADS 2 - BENIGN FINDING(S) Recommendation: 1: Routine Screening Bilateral COMMENTS: Ordered By: JUNIOR DAVISON Interpreted By: Dino Zhao MD, 02/28/2024 9:55 AM Narrative 02/28/2024 9:56 AM DIRECT CARE WORKER [facility] [address] [place] [address] EXAMINATION: Digital bilateral screening mammogram with 3-D tomosynthesis EXAM DATE/TIME: 02/27/2024 12:25 PM REASON FOR EXAM: Screening Mammogram COMPARISON: Priors including June 2022, May 2021, April 2020. TECHNIQUE: Digital screening mammography of both breasts was performed in addition to 3-D Tomosynthesis technique. This study was read with the assistance of a computer-aided detection system. TISSUE DENSITY: There are scattered areas of fibroglandular density. FINDINGS: No suspicious masses, malignant appearing calcifications, skin thickening or other abnormalities are present. No significant change from the prior exam. Junior Davison [facility] MAMMO Final Re sult from Last 3 Months Insurance Care Teams Center Line Cutter Operator Relationship Specialty Start Date End Date Junior Davison [facility] [address] [place] [address] PCP - General Nurse Practitioner Family 12/05/23 True Wallace MD [facility]. [address] [address] [place] Senior Instrumentation Engineer CARDIOVASCULAR DISEASE 07/15/15
--- OUTSIDE RECORDS SUMMARY | 2024-05-03 12:04 | XMS_ITS | Encounter Summary ---
Author Organization [facility] Address [facility] [place] [address] Care Team Providers Care Warehouseman Name Role Phone True Wallace MD Unavailable [phone] Rachel Lagos DO Primary Care Provider [phone] Manjeet Garner MD Primary Care Provider [phone] Ijeoma Walters [facility] Primary Care Provider + Encounter Details Date Type Department Care Team (Late st Contact Info) Description 04/17/2017 Abstract [facility] CONVERSION [address] [facility] [place] [id number] , Neftaly Rashid MD Social History Tobacco Use Types Packs/Day Years [...] file Not on file Not on file documented as of this encounter Plan of Treatment Upcoming Encounters Date Type Department Care Team (Late st Contact Info) Description 12/09/2024 11:30 AM CDT [facility] [address] [place] [address] True Wallace MD [facility]. [facility] [address] [place] [address] documented as of this encounter Visit Diagnoses Not on filedocumented in this encounter Care Teams Warehouseman Relationship Specialty Start Date End Date Rachel Lagos DO [facility]. [facility] [address] [place] [address] PCP - General FAMILY PRACTICE 02/13/17 11/12/21 Manjeet Garner MD [address] [place] [address] PCP - General FAMILY PRACTICE 11/13/21 12/04/23 Ijeoma Walters [facility] [address] [place] [address] PCP - General Nurse Practitioner Family 12/05/23 True Wallace MD [facility]. [address] [address] [place] [employer] Maker CARDIOVASCULAR DISEASE 07/15/15 documented as of this encounter
--- OUTSIDE RECORDS SUMMARY | 2024-05-03 12:04 | XMS_ITS | Encounter Summary ---
Author Organization [facility] Address [facility] [place] [address] Care Team Providers Care Timers Inspector Name Role Phone Enrike Tee DO Primary Care Provider [phone] True Wallace MD Unavailable [phone] Rachel Lagos DO Primary Care Provider [phone] Manjeet Garner MD Primary Care Provider [phone] [facility] Primary Care Provider + Encounter Details Date Type Department Care Team (Late st Contact Info) Description 02/12/2016 Abstract [facility] AT [address] [address] [place] Social History Tobacco Use [...] Description 12/09/2024 11:30 AM CDT Office Visit [facility] [address] [place] [address] True Wallace MD [facility]. [address] [address] documented as of this encounter Procedures Procedure Name Priority Date/Time Associated Diagnosis Comments CBC (OUTSIDE LAB) Routine 06/05/2018 COMPREHENSIVE METABOLIC PANEL Routine 06/05/2018 LIPID PANEL Routine 06/05/2018 THYROID STIM HORMONE TSH Routine 06/05/2018 CBC (OUTSIDE LAB) Routine 06/15/2016 COMPREHENSIVE METABOLIC PANEL Routine 06/15/2016 LIPID PANEL Routine 06/15/2016 THYROID STIM HORMONE TSH Routine 06/15/2016 CBC (OUTSIDE LAB) Routine 01/06/2016 COMPREHENSIVE METABOLIC PANEL Routine 01/06/2016 LIPID PANEL Routine 01/06/2016 HEMOGLOBIN, GLYCOSYLATED Routine 01/06/2016 THYROID STIM HORMONE TSH Routine 01/06/2016 documented in this encounter Results * THYROID STIM HORMONE, TSH (06/05/2018) TSH 1.542 06/05/2018 us Doc [facility] Final Result * LIPID PANEL (06/05/2018) CHOLESTEROL 149 HDL 71 TRIGLYCERIDES 52 LDL (CALCULATED) 68 06/05/2018 us Doc [facility] Final Result * COMPREHENSIVE METABOLIC PANEL (06/05/2018) SODIUM S/P/B 140 POTASSIUM S/P/B 4.8 CO2 29.6 CHLORIDE S/P/B 101 GLUCOSE 101 mg/dL CALCIUM S/P/B 9.8 BUN 15 CREATININE S/P/B 0.62 0.5 - 1.0 EGFR AFR. AMER. >90 <=90 EGFR NON-AFR. AMER. >90 <=90 ALKALINE PHOSPHATASE S/P/B 69 ALT 14 AST 20 BILIRUBIN TOTAL S/P/B 0.6 ALBUMIN S/P/B 3.9 3.5 - 5.0 TOTAL PROTEIN S/P/B 7.1 06/05/2018 us [facility] Final Result * CBC (OUTSIDE LAB) (06/05/2018) Pathologist [facility] WBC 6.2 HGB 14.0 HCT 42.4 PLT 278 06/05/2018 Doc [facility] Abstract LAB-OUTSIDE/ABSTRACTED Final Result * THYROID STIM HORMONE, TSH (06/15/2016) TSH 0.577 06/15/2016 us Doc [facility] Final Result * LIPID PANEL (06/15/2016) CHOLESTEROL 171 HDL 68 TRIGLYCERIDES 49 LDL (CALCULATED) 93 06/15/2016 us Doc [facility] Final Result * COMPREHENSIVE METABOLIC PANEL (06/15/2016) SODIUM S/P/B 142 POTASSIUM S/P/B 4.2 CO2 29 CHLORIDE S/P/B 102 GLUCOSE 114 mg/dL CALCIUM S/P/B 10 BUN 17 CREATININE S/P/B 0.71 0.5 - 1.0 ALKALINE PHOSPHATASE S/P/B 66 ALT 25 AST 32 BILIRUBIN TOTAL S/P/B 1.2 ALBUMIN S/P/B 4.5 3.5 - 5.0 TOTAL PROTEIN S/P/B 7.5 06/15/2016 us Doc [facility] Final Result * CBC (OUTSIDE LAB) (06/15/2016) Pathologist [facility] WBC 5.3 HGB 14.1 HCT 43.1 PLT 245 06/15/2016 us Doc [facility] LAB-OUTSIDE/ABSTRACTED Edite d Result - Final * CBC (OUTSIDE LAB) (01/06/2016) [facility] WBC 5.1 HGB 13.9 HCT 43.1 PLT 293 01/06/2016 us Doc [facility] LAB-OUTSIDE/ABSTRACTED Final Result * THYROID STIM HORMONE, TSH (01/06/2016) Pathologist [facility] TSH 0.72 01/06/2016 us Doc [facility] Edited Resul t - Final * HEMOGLOBIN, GLYCOSYLATED (01/06/2016) [facility] HGB A1C 6.7 01/06/2016 us Doc [facility] Final Result * (ABNORMAL) COMPREHENSIVE METABOLIC PANEL (01/06/2016) Pathologist [facility] SODIUM S/P/B 140 POTASSIUM S/P/B 4.2 CO2 31 CHLORIDE S/P/B 101 GLUCOSE 118 CALCIUM S/P/B 10 BUN 15 CREATININE S/P/B 0.59 0.5 - 1.0 EGFR AFR. AMER. 117(A) <=90 EGFR NON-AFR. AMER. 101(A) <=90 ALKALINE PHOSPHATASE S/P/B 69 ALT 17 AST 22 BILIRUBIN TOTAL S/P/B 0.6 ALBUMIN S/P/B 4.5 3.5 - 5.0 TOTAL PROTEIN S/P/B 7.0 GLOBULIN 2.5 01/06/2016 us Doc [facility] Final Result * LIPID PANEL (01/06/2016) CHOLESTEROL 167 HDL 71 TRIGLYCERIDES 67 NON HDL CHOLESTEROL 96 LDL (CALCULATED) 83 01/06/2016 us Doc [facility] Edited Resul t - Final documented in this encounter Visit Diagnoses Not on filedocumented in this encounter Care Teams Timers Inspector Relationship Specialty Start Date End Date Enrike Tee DO [address] [facility] [address] [place] [address] PCP - General INTERNAL MEDICINE 07/15/15 02/12/17 [facility] [id number] PCP - General FAMILY PRACTICE 02/13/17 11/12/21 Manjeet Garner MD [address] [place] [address] PCP - General FAMILY PRACTICE 11/13/21 12/04/[address] [facility] [address] [place] [address] PCP - General Nurse Practitioner Family 12/05/23 [facility] [address] [address] [place] General Science Teacher CARDIOVASCULAR DISEASE 07/15/15 documented as of this encounter
== END 2024-05-03 11:11 | disposition home or self-care (01) ==
PROVIDERS: Emergency Provider Nurse Practitioner; PCP Nurse Practitioner Family
DX: R09.82 Postnasal drip (principal); R05.1 Acute cough; E11.9 Type 2 diabetes mellitus without complications; Z79.84 Long term (current) use of oral hypoglycemic drugs; I10 Essential (primary) hypertension; E78.5 Hyperlipidemia, unspecified; R01.1 Cardiac murmur, unspecified; K22.70 Barrett's esophagus without dysplasia; Z79.82 Long term (current) use of aspirin
CPT/HCPCS: 99213; G0463